=== PATIENT | female | born 1950 | race Caucasian/White ===

== ENCOUNTER 2017-02-21 08:33 | Emergency (ER) | payer OTHER ==
[2017-02-21 08:38] VITALS: RESP 18
[2017-02-21] MEDS ORDERED: NS 1,000 ML IV ONE (09:00)
[2017-02-21] MEDS ORDERED: HYDROmorphONE/DILAUDID 1 MG/ML INJ IVP ONE ×2 (09:00→09:31)
[2017-02-21] MEDS ORDERED: ONDANSETRON 4 MG/2 ML VIAL IVP ONE (09:00)
--- NOTE | 2017-02-21 09:07 | EDPHY ---
H & P Time Seen by Provider: 02/21/17 08:41 HPI/ROS: HPI Abdominal pain. 67-year-old female by private vehicle with her friend. Patient reports that she woke up at 4:30 a.m. with sharp cramping right sided lateral to upper abdominal pain with radiation to the right flank area. This was associated with nausea. She had several episodes of nonbilious, nonbloody vomiting. She had a bowel movement at 4:30 a.m.. Describes this is normal. No bloody or melenic stool. Denies fever. No urinary complaints. The pain has been constant since 4:30 a.m.. ROS: Constitutional: No fever, no chills. No weakness. Eyes: No discharge. No changes in vision. ENT: No sore throat. No nasal congestion or rhinorrhea. Respiratory: No cough. No shortness of breath. Cardiac: No chest pain, no palpitations. Gastrointestinal: As above, no diarrhea. Genitourinary: No hematuria. No dysuria or increased frequency with urination. Musculoskeletal: No back pain. No neck pain. No myalgias or arthralgias. Skin: No rashes. Neurological: No headache. No focal weakness or altered sensation. Past medical history: Denies any past medical history. She has an allergy to penicillins. Social history: Nonsmoker. No alcohol. Here with her friend. Physical Exam: General Appearance: Alert, she appears uncomfortable. This patient is responding to questions appropriately and in full sentences. This patient appears well-hydrated and well-nourished. Eyes: Pupils equal and round no pallor or injection. No lid edema, erythema or injection. Respiratory: There are no retractions, lungs are clear to auscultation with good air movement bilaterally. Cardiovascular: Regular rate and rhythm. No murmur. Gastrointestinal: Abdomen is soft , moderately distended, vague tenderness on palpation at the the anterior axillary line just below the costal margin., no masses, bowel sounds normal. No focal tenderness at McBurney's point. No Bourgeois sign. Neurological: Motor sensory function is grossly intact. Cranial nerves are normal. Gait is normal. Skin: Warm and dry, no rashes. Musculoskeletal: Neck is supple and nontender. She does not have any significant flank CVA tenderness on palpation. Extremities are symmetrical. All joints range without pain or impingement. Psychiatric: No agitation. No depression. Database: EKG: Imaging: CT abdomen and pelvis with IV contrast: Significant for a 5 mm x 4 mm right- sided UVJ stone with moderate hydronephrosis. The appendix is well visualized and is normal. Her endometrium is noted to be thick at 8 mm. Study is otherwise unremarkable. Results were discussed with staff radiologist Dr. Real Johnson. Procedures: Emergency department course: IV placed. She was placed on a monitor. She was admitted initially given 0.25 mg of IV hydromorphone. This will be repeated as needed for pain control. She was given 4 mg of IV Zofran. She is NPO. Started on 1 L of IV normal saline to be given over the next hour. She will be sent for CT imaging to evaluate for kidney stone versus gallbladder pathology versus possible appendicitis. She consents. 10:30 a.m., patient given oral Flomax. Patient's pain currently is well controlled. We are waiting on a urinalysis. Results of CT scan discussed with her. 12:00 p.m., patient re-evaluated. Pain is well controlled. She feels comfortable going home. She does live in [place]. I will provide her with a local urologist for followup. Otherwise she will follow up with a urologist in [place] when she returns home tomorrow or the next day. Return to emergency department precautions were thoroughly discussed with her. All of her questions were answered. She will be prescribed Flomax, Vicodin and stool softeners for pain control. She was discharged in good condition. Differential Diagnosis: The differential diagnosis on this patient includes but is not limited to kidney stone, gallstones, cholecystitis, appendicitis. This represents a partial list of diagnoses considered. These considerations are based on history , physical exam, past history, reassessment and diagnostic testing. Smoking Status: Never smoked Constitutional: Initial Vital Signs Temperature (C) 36.7 C 02/21/17 08:34 Heart Rate 78 02/21/17 08:34 Respiratory Rate 18 02/21/17 08:34 Blood Pressure 165/99 H 02/21/17 08:34 O2 Sat (%) 97 02/21/17 08:34 O2 Delivery Mode Room Air Allergies/Adverse Reactions: Penicillins Allergy (Mild, Verified 02/21/17 08:38) Rash Home Medications: Medication Instructions Recorded Docusate Sodium [Colace 100 MG (*)] 100 mg PO TID #20 cap 02/21/17 Hydrocodone/APAP 5/325 [[place] 1 - 2 tab PO Q4-6PRN PRN #20 tab 02/21/17 5/325 (*)] Ondansetron Odt [Zofran Odt 4 mg 4 mg PO Q4PRN PRN #10 tab 02/21/17 (*)] Tamsulosin HCl [Flomax 0.4 MG (*)] 0.4 mg PO DAILY #4 cap 02/21/17 Medical Decision Making - Data Points Laboratory Results: Laboratory Results 02/21/17 08:55 02/21/17 08:55 Microbiology Results: MICROBIOLOGY 02/21/17 10:30 Unspecified Urine Culture - Preliminary [place] Types Medications Given: Discontinued Medications Hydromorphone HCl (Dilaudid) 0.25 mg IVP EDNOW ONE Stop: 02/21/17 09:01 Last Admin: 02/21/17 09:15 Dose: 0.25 mg Hydromorphone HCl (Dilaudid) 0.5 mg IVP EDNOW ONE Stop: 02/21/17 09:32 Last Admin: 02/21/17 09:32 Dose: 0.5 mg Sodium Chloride (Ns) 1,000 mls @ 0 mls/hr IV EDNOW ONE; Wide Open PRN Reason: Protocol Stop: 02/21/17 09:01 Last Admin: 02/21/17 09:16 Dose: 1,000 mls Ketorolac Tromethamine (Toradol) 30 mg IVP EDNOW ONE Stop: 02/21/17 10:28 Last Admin: 02/21/17 10:45 Dose: Not Given Ondansetron HCl (Zofran) 4 mg IVP EDNOW ONE Stop: 02/21/17 09:01 Last Admin: 02/21/17 09:16 Dose: 4 mg Tamsulosin HCl (Flomax) 0.4 mg PO EDNOW ONE Stop: 02/21/17 10:27 Last Admin: 02/21/17 10:38 Dose: 0.4 mg Departure - Departure Disposition: Home, Routine, Self-Care Clinical Impression: Kidney stone on right side Condition: Good Instructions: Kidney Stones (ED) Additional Instructions: Read and follow provided instructions. Follow-up with a urologist this week for re-evaluation and further management as discussed. Take medication as prescribed. [place]/Percocet dosin-2 every 4-6 [address] for [address] not drive on this medication. Follow-up with OBGYN regarding your thickened endometrium of your uterus which was 8 mm. This was an incidental finding on CAT scan. But your OBGYN should be aware of that. Return to the emergency department for worsening pain, vomiting, fever or other serious concerns. Referrals: Bacilio Lafleur MD [Medical Doctor] - As per Instructions Prescriptions: Docusate Sodium [Colace 100 MG (*)] 100 mg PO TID #20 cap Hydrocodone/APAP 5/325 [[place] 5/325 (*)] 1 - 2 tab PO Q4-6PRN PRN #20 tab PRN Reason: Pain, Moderate Ondansetron Odt [Zofran Odt 4 mg (*)] 4 mg PO Q4PRN PRN #10 tab PRN Reason: For Nausea & Vomiting Tamsulosin HCl [Flomax 0.4 MG (*)] 0.4 mg PO DAILY #4 cap
[2017-02-21 09:10] LABS: % IMMATURE GRANULYOCYTES 0.3 % (0.0-1.1); ABSOLUTE IMMATURE GRANULOCYTES 0.03 10^3/uL (0.00-0.10); ADD DIFF? NO; ADD MORPH? NO; ADD SCAN? NO; ATYPICAL LYMPHOCYTE FLAG 0 (0-99); FRAGMENT RBC FLAG 0 (0-99); HEMATOCRIT 41.8 % (38.0-47.0); HEMOGLOBIN 13.6 g/dL (12.6-16.3); LEFT SHIFT FLG 0 (0-99); LIPEMIA HEMOLYSIS FLAG 80 (0-99); MEAN CELL HEMOGLOBIN 27.6 pg (27.9-34.1); MEAN CELL HEMOGLOBIN CONCENTR. 32.5 g/dL (32.4-36.7); MEAN CELL VOLUME 84.8 fL (81.5-99.8); MEAN PLATELET VOLUME 10.9 fL (8.7-11.7); PLATELET CLUMPS FLAG 0 (0-99); PLATELET COUNT 204 10^3/uL (150-400); RED BLOOD CELL COUNT 4.93 10^6/uL (4.18-5.33); RED CELL DISTRIBUTION WIDTH 14.5 % (11.5-15.2)
[2017-02-21] MEDS ORDERED: HYDROmorphONE/DILAUDID 1 MG/ML INJ ONE (09:27)
[2017-02-21 09:29] LABS: ALANINE AMINOTRANSFERASE 45 IU/L (9-52); ALBUMIN 4.3 g/dL (3.5-5.0); ALKALINE PHOSPHATASE 79 IU/L (38-126); ANION GAP 12 mEq/L (8-16); ASPARTATE AMINOTRANSFERASE 28 IU/L (14-46); BILIRUBIN,TOTAL 0.3 mg/dL (0.1-1.4); BILIRUBIN-CONJUGATED 0.2 mg/dL (0.0-0.5); BILIRUBIN-UNCONJUGATED 0.1 mg/dL (0.0-1.1); CALCIUM 9.1 mg/dL (8.5-10.4); CARBON DIOXIDE 25 mEq/l (22-31); CHLORIDE 106 mEq/L (97-110); CREATININE 1.1 mg/dL (0.6-1.0); GLOMERULAR FILTRATION RATE 50; GLUCOSE 145 mg/dL (70-100); SODIUM 143 mEq/L (134-144); TOTAL PROTEIN 6.9 g/dL (6.3-8.2)
[2017-02-21] MEDS ORDERED: IOPAMIDOL (ISOVUE-300) 100 ML BTL ONE (09:43)
[2017-02-21] MEDS ORDERED: TAMSULOSIN HCL 0.4 MG CAP PO ONE (10:26)
[2017-02-21] MEDS ORDERED: KETOROLAC 30 MG/1 ML SDV IVP ONE (10:27)
[2017-02-21 10:49] LABS: COLOR PALE YELLOW; LEUKOCYTE ESTERASE,URINE NEGATIVE (NEGATIVE); NITRITE,URINE NEGATIVE (NEGATIVE)
[2017-02-21 11:13] LABS: MUCUS TRACE /lpf (NONE-1+); RBC,URINE 25-50 /hpf (0-3); WBC,URINE NONE SEEN /hpf (0-3)
[2017-02-21 12:43] VITALS: BP 131/64; PULSE 65; TEMP 99; O2SAT 94
== END 2017-02-21 12:43 | disposition home or self-care (01) ==
DX: N20.0 Calculus of kidney (principal); E86.9 Volume depletion, unspecified
CPT/HCPCS: 74177; 96374; 96375; 99285; J1170; J2405; Q9967